=== PATIENT | female | born 1990 | race Caucasian/White ===

== ENCOUNTER 2018-11-30 18:56 | Emergency (ER) | payer SELFPAY ==
[2018-11-30 19:27] VITALS: PULSE 80; RESP 14; TEMP 98; O2SAT 99
--- NOTE | 2018-11-30 21:16 | C.PDOC ---
History Of Present Illness 28 year old female presents to the ED for evaluation of left-sided rib, hip and knee pain which began after she sustained a fall while skating yesterday. Patient states she tried applying a gel to the area without relief, but has not taken any medicine for the pain. She denies head injury,dizziness, LOC, vomiting, extremity numbness/weakness. - HPI Time Seen by Provider: 11/30/18 19:29 Chief Complaint (Nursing): Trauma History Per: Patient History/Exam Limitations: no limitations Onset/Duration Of Symptoms: Hrs Location Of Injury: Left: Chest (ribs ), Hip, Knee Additional History Per: Patient Past Medical History Reviewed: Historical Data, Nursing Documentation, Vital Signs Vital Signs: Last Vital Signs Temp 98 F 11/30/18 19:22 Pulse 80 11/30/18 19:22 Resp 14 11/30/18 19:22 BP 118/78 11/30/18 19:22 Pulse Ox 99 11/30/18 19:22 - Medical History PMH: No Chronic Diseases Surgical History: No Surg Hx Family History: States: Unknown Family Hx - Social History Hx Alcohol Use: No Hx Substance Use: No - Immunization History Hx Tetanus Toxoid Vaccination: Yes Hx Influenza Vaccination: No Hx Pneumococcal Vaccination: No Review Of Systems Musculoskeletal: Positive for: Other (left-sided rib, hip and knee pain ) Neurological: Negative for: Weakness, Numbness Physical Exam - Physical Exam Appears: Non-toxic, No Acute Distress Skin: Normal Color, Warm, Dry, Ecchymosis (left knee ) Head: Atraumatic, Normacephalic Eye(s): bilateral: Normal Inspection Oral Mucosa: Moist Neck: Normal ROM, Supple Chest: Symmetrical, No Deformity, Tenderness (over left lateral intercostal area, around mid-axillary line ), No Ecchymosis, Other (crepitus ) Extremity: Normal ROM (to bilateral lower extremities ), Tenderness (to left hip and left lateral buttock, and left knee ), Capillary Refill (less than 2 seconds ), No Deformity, No Swelling Neurological/Psych: Oriented x3, Normal Speech, Normal Cognition, Normal Sensation ED Course And Treatment O2 Sat by Pulse Oximetry: 99 (on RA ) Pulse Ox Interpretation: Normal Progress Note: Left knee XR, Left ribs/chest XR, and Left hip XR ordered and reviewed. All results are unremarkable. Motrin PO given. On reassessment, patient is resting comfortably, showing no signs of distress and reports an improvement in her symptoms. Patient is stable for discharge. She is advised to f/u with her PMD within 1-2 days for further evaluation. Disposition Counseled Patient/Family Regarding: Diagnosis, Need For Followup, Rx Given - Disposition Referrals: [facility] [Outside] Disposition: HOME/ ROUTINE Disposition Time: 21:12 Condition: STABLE Additional Instructions: PLEASE FOLLOW IN CLINIC TAKE MOTRIN OR TYLENOL FOR PAIN APPLY ICE TO AFFECTED AREAS RETURN TO ER IF WORSE Instructions: Contusion (DC), Bruised Rib (DC) Forms: [email or web address] (C[place]) - Clinical Impression Clinical Impression: Contusion of knee, left, Contusion of rib on left side, Contusion of left hip - Scribe Statement The provider has reviewed the documentation as recorded by the Scribe (Cherry Leyva) All medical record entries made by the Scribe were at my direction and personally dictated by me. I have reviewed the chart and agree that the record accurately reflects my personal performance of the history, physical exam, medical decision making, and the department course for this patient. I have also personally directed, reviewed, and agree with the discharge instructions and disposition.
[2018-11-30 21:24] VITALS: BP 110/70
--- NOTE | 2018-12-01 08:56 | RAD ---
Date of service: 11/30/2018 PROCEDURE: Radiographs of the Chest and Left Ribs. HISTORY: pain, fall COMPARISON: None available. TECHNIQUE: Frontal radiograph of the chest and multiple oblique radiographs of the left ribs were obtained. FINDINGS: LEFT RIBS: No fracture or focal lesion visualized. LUNGS: Clear. PLEURA: No pneumothorax or pleural fluid. CARDIOVASCULAR: Normal cardiac size. No pulmonary vascular congestion. No aortic atherosclerotic calcification present OTHER FINDINGS: A 5 x 8 mm ossifications/calcifications projects over the extra osseous soft tissues beneath the acromion and superior to the humerus-calcific rotator cuff tendinopathy and/or calcific bursitis is compatible with this. Patient is 28 years of age is noted. IMPRESSION: No left rib fracture. No pneumothorax no pleural effusion. Incidentally noted is a extraosseous ossification/calcification compatible with left subacromial calcific bursitis and/or calcific rotator cuff tendinopathy-relative young age is noted. A osseous chip fracture fragment is believed less likely given its appearance and smooth margins. No donor site apparent. Comments: Study marked for PA review .
--- NOTE | 2018-12-01 08:59 | RAD ---
Date of service: 11/30/2018 PROCEDURE: Left Knee Radiographs. HISTORY: Pain. COMPARISON: None. FINDINGS: BONES: Normal. No fracture. JOINTS: Normal. No osteoarthritis. JOINT EFFUSION: None. OTHER FINDINGS: None. IMPRESSION: Normal radiographs of the left knee.
--- NOTE | 2018-12-01 09:03 | RAD ---
Date of service: 11/30/2018 PROCEDURE: HISTORY: pain, fall COMPARISON: None TECHNIQUE: AP pelvis and frog's leg view. FINDINGS: No fracture or lytic lesion. There is trace bilateral acetabular spurring noted in this young 28-year-old female patient. Each femoral head probably right greater than left also appears to have probably top-normal uncovering of their femoral head relative to the acetabulum. Bilateral hemipelvic calcifications probable phleboliths are favored. Sacroiliac and pubic symphyseal joints are normal. Right stool retention incidentally noted. IMPRESSION: No fracture or Other findings as above.
== END 2018-11-30 21:24 | disposition home or self-care (01) ==
LOC: C.ER 18:56
DX: S80.02XA Contusion of left knee, initial encounter (principal); S20.212A Contusion of left front wall of thorax, initial encounter; S70.02XA Contusion of left hip, initial encounter; V00.211A Fall from ice-skates, initial encounter; Y93.21 Activity, ice skating

== ENCOUNTER 2019-01-05 14:38 | Outpatient (CLI) | payer SELFPAY | END 2019-01-05 14:39 | disposition home or self-care (01) | LOC: C.LAB 14:38 | DX: R55 Syncope and collapse (principal) ==

== ENCOUNTER 2019-01-07 07:39 | Outpatient (CLI) | payer SELFPAY | END 2019-01-07 07:40 | disposition home or self-care (01) | LOC: C.CTH 07:39 | DX: R55 Syncope and collapse (principal) ==